=== PATIENT | female | born 1970 | race Caucasian/White ===

== ENCOUNTER → 2017-12-31 12:10 | Day surgery (SDC) | payer OTHER ==
[~2017-12-31 12:10] MED LIST: Lidocaine 1% INJ* 10 MG/ML 30 ML SDV ONE
--- NOTE | 2017-12-31 14:08 | RAD ---
INDICATION: Right chest mass COMPARISON: Chest x-ray December 30, 2017; CT chest December 30, 2017 TECHNIQUE: An AP portable view obtained at 1306 hours is submitted. FINDINGS: Bones/Soft Tissues: There are no acute bony findings. Cardiomediastinal: The cardiomediastinal silhouette is normal. Lungs: There is a right upper lobe mass measuring up to 10 cm in greatest dimension. Some of the radiodensity may be related to post obstructive atelectasis, however. The plain radiographs demonstrate no additional discrete masses although CT is suggested additional metastatic foci. There is no pneumothorax. Pleura: There is a small moderate-sized right-sided pleural effusion appearing slightly smaller. There may be a tiny left-sided pneumothorax. Other: None IMPRESSION: RIGHT UPPER LOBE MASS. NO PNEUMOTHORAX POST THORACENTESIS. THERE ARE SUBPLEURAL EFFUSION IS SMALLER
--- NOTE | 2017-12-31 15:37 | RAD ---
INDICATION: Limited RIGHT chest ultrasound for marking for thoracentesis. Comparison: December [address] and December 31 chest radiograph. Technique: Ultrasound of the posterior inferior RIGHT thorax performed with the patient sitting. REPORT AND IMPRESSION: Large nonloculated appearing pleural effusion with low-level echoes suggesting malignant pleural effusion or parapneumonic effusion. Skin over the dominant pocket of pleural fluid marked for thoracentesis.
--- NOTE | 2018-01-01 02:42 | PRO ---
THORACENTESIS REPORT: DATE OF PROCEDURE: 12/31/17 PROCEDURE PERFORMED: Ultrasound-sound guided thoracentesis on the right side. PREPROCEDURAL DIAGNOSIS: Right-sided pleural effusion. POSTPROCEDURAL DIAGNOSIS: Large right pleural effusion. ANESTHESIA: Local anesthesia with 1% lidocaine 5 cc. PROCEDURE: Informed consent was obtained from the patient prior to the procedure after all the risks and benefits of the procedure were thoroughly explained. The patient was referred for evaluation of abdominal CT chest, was found to have a large right-sided lung mass along with right pleural effusion and mediastinal and hilar adenopathy. Strict aseptic precautions were utilized. A time-out was agreed on by the attending staff prior to the procedure. The patient was sitting up and leaning forward. CareFusion 8- [place]ian thoracentesis catheter was used for the procedure. A portable ultrasound was utilized to nina the pleural space and site of entry. Area was cleaned with chlorhexidine. 1% lidocaine was then instilled intramuscularly taking precautions under manual suction. A stab incision was made with #11 scalpel blade to facilitate entry of larger catheter. CareFusion 8-[place]ian catheter then was inserted under manual suction taking precautions. The catheter was left in space and needle was removed. 1 L of dark yellow fluid was aspirated on manual suction. Catheter was removed and band aid was applied. Fluid was sent to the lab for biochemical and cytological examination. Postprocedure chest x-ray was ordered and was verified. [id number] #: [id number] MTDD
== END | disposition home or self-care (01) ==
LOC: OR 12:10
PROVIDERS: ATTEND Internal Medicine
DX: J91.0 Malignant pleural effusion (principal); Z87.891 Personal history of nicotine dependence; Z85.828 Personal history of other malignant neoplasm of skin; R06.02 Shortness of breath; R05 Cough; J98.4 Other disorders of lung; R59.0 Localized enlarged lymph nodes
CPT/HCPCS: 36415; 71045; 76604; 82945; 83615; 84157; 87070; 87076; 87205; 88112; 88305; 88341; 88342; 88360; 89051

== ENCOUNTER → 2018-01-12 12:13 | Day surgery (SDC) | payer OTHER ==
--- NOTE | 2018-01-12 13:56 | RAD ---
HISTORY: Localization for thoracentesis COMPARISONS: December 31, 2017 TECHNIQUE: Multiple transverse and longitudinal ultrasound images were obtained of the right chest for the purposes of localization for thoracentesis. FINDINGS: Spot images demonstrate a large right pleural effusion. At the site marked for thoracentesis, the distance from the skin to the effusion is approximately 2 cm. The distance from the skin to the center of the effusion is approximately 9 cm. IMPRESSION: LIMITED ULTRASOUND FOR THE PURPOSES OF LOCALIZATION FOR THORACENTESIS
--- NOTE | 2018-01-12 14:15 | RAD ---
INDICATION: Status post thoracentesis. COMPARISON: Comparison is made with a prior study from January 11, 2018. TECHNIQUE: A portable view of the chest was obtained. FINDINGS: The heart is within normal limits in size. There is a large mass which projects over the right hilar region which appears unchanged. There is a small right pleural effusion which has decreased in size. There also appears to be a trace left pleural effusion No pneumothorax is seen. IMPRESSION: INTERVAL DECREASE IN SIZE OF THE RIGHT PLEURAL EFFUSION, NO PNEUMOTHORAX IS SEEN.
--- NOTE | 2018-01-12 21:59 | PRO ---
PROCEDURE REPORT: DATE OF PROCEDURE: 01/12/18 PROCEDURE PERFORMED: Ultrasound-guided thoracentesis on the right side. PREPROCEDURAL DIAGNOSES: Recurrent right pleural effusion, recently diagnosed adenocarcinoma of lung ANESTHESIA: Local anesthesia with 1% lidocaine 5 cc. POSTPROCEDURAL DIAGNOSIS: Large right pleural effusion. PROCEDURE IN DETAIL: Informed consent was obtained from the patient prior to the procedure after all the risks and benefits including the risk of pneumothorax was thoroughly explained. Patient had thoracentesis few days ago, cytology was positive for adenocarcinoma. Patient had worsening cough and shortness of breath over the past 3 to 4 days, chest x-ray revealed recurrence of pleural effusion on the right side. Ultrasound was utilized at bedside to localize large amounts of right pleural fluid. Appropriate time-out was agreed on by attending staff prior to the procedure. CareFusion 8-Thai thoracentesis catheter was used at bed side. Patient was sitting up, leaning forwards. Strict aseptic precautions and barrier techniques were utilized. Chlorhexidine was used to disinfect the skin. 1% lidocaine was instilled subcutaneously, intradermally taking precautions. A #11 scalpel blade was utilized to make stab incision. CareFusion 8-Thai thoracentesis catheter was inserted under manual suction. Catheter was left in place and needle was removed. Dark yellow fluid about 1300 mL was removed under manual suction. Catheter was then removed and bandage was applied. Patient tolerated the procedure well. Postprocedure chest x-ray was performed and was reviewed by me. Patient was discharged home in stable condition. [id number]/CPS #: [id number] MTDD
== END | disposition home or self-care (01) ==
LOC: OR 12:13
PROVIDERS: ATTEND Internal Medicine
DX: J91.0 Malignant pleural effusion (principal); C34.90 Malignant neoplasm of unspecified part of unspecified bronchus or lung; Z87.891 Personal history of nicotine dependence; R06.02 Shortness of breath; R59.0 Localized enlarged lymph nodes; R05 Cough
CPT/HCPCS: 32554; 71045; 76604

== ENCOUNTER → 2018-01-21 | Day surgery (SDC) | payer OTHER ==
--- NOTE | 2018-01-21 13:47 | RAD ---
HISTORY: Status post paracentesis COMPARISONS: January 20, 2018 VIEWS: 1: frontal portable view of the chest at 1:17 PM FINDINGS: LINES AND TUBES: None. CARDIOMEDIASTINAL SILHOUETTE: There is stable paramediastinal mass of the right upper lung. PLEURA: There is a small residual right pleural effusion, decreased from the previous examination. There is no appreciable pneumothorax. LUNG PARENCHYMA: There is stable paramediastinal mass of the right upper lung. There is, frontal opacification of the right lower lung. ABDOMEN: The upper abdomen is clear. There is no subphrenic gas. BONES AND SOFT TISSUES: No bone or soft tissue abnormalities are noted. IMPRESSION: 1. SMALL RESIDUAL RIGHT PLEURAL EFFUSION, DECREASED FROM THE PREVIOUS EXAMINATION. NO APPRECIABLE PNEUMOTHORAX. 2. STABLE RIGHT PARAMEDIASTINAL MASS OF THE UPPER LUNG. 3. RIGHT LOWER LUNG CONSOLIDATION.
--- NOTE | 2018-01-21 20:39 | PRO ---
PROCEDURE REPORT: DATE OF PROCEDURE: 01/21/18 PROCEDURE PERFORMED: Ultrasound-guided thoracentesis on the right side. PREPROCEDURAL DIAGNOSIS: Adenocarcinoma, therapeutic. POSTPROCEDURAL DIAGNOSIS: Large right pleural effusion for therapeutic benefit. ANESTHESIA: 1% lidocaine 6 mL. INDICATION: Informed consent was obtained from the patient prior to the procedure after all the risks and benefits were thoroughly explained. The patient recently was diagnosed with adenocarcinoma of pulmonary origin after thoracentesis. The patient has been having worsening cough, difficulty lying down, and shortness of breath, and procedure was scheduled for therapeutic benefit. DESCRIPTION OF PROCEDURE: Informed consent was obtained from the patient after all the risks and benefits including the risks of pneumothorax were thoroughly explained. Appropriate time-out was agreed on by attending staff prior to the procedure. Strict aseptic precautions and all barrier techniques were utilized. A carefusion 8F thoracentesis catheter was utilized. Portable U/ S was utilized at bedside. Area was anesthetized with 1% lidocaine, instilled, intradermally, subcutaneously down into pleural space taking precautions. Stab incision was performed with #11 scalpel blade to facilitate insertion of catheter which was inserted under manual suction. Catheter was left in place and needle was removed. 1400ml of dark yelllow fluid was drained under manual suction. Patient had mild cough towards end of procedure. Procedure was terminated. Post procedure CXR was ordered and was verified, no evidence of pneumothorax noted. [id number]/[facility] #: [id number] MTDD
== END | disposition home or self-care (01) ==
LOC: IMG 10:55
PROVIDERS: ATTEND Internal Medicine
DX: J90 Pleural effusion, not elsewhere classified (principal); J98.4 Other disorders of lung; J18.1 Lobar pneumonia, unspecified organism
CPT/HCPCS: 32554; 71045; 88112; 88305

== ENCOUNTER → 2018-01-31 11:11 | Day surgery (SDC) | payer OTHER, BC ==
--- NOTE | 2018-01-31 13:41 | RAD ---
Indication: Ultrasound marking for RIGHT thoracentesis. Comparison: January 28, 2018 chest radiograph. Technique: Ultrasound of the posterior RIGHT thorax. REPORT AND IMPRESSION: Large dependent RIGHT pleural effusion visualized. Skin over the fluid marked for thoracentesis by Dr. Hutchinson.
--- NOTE | 2018-01-31 13:57 | RAD ---
Indication: Right pleural effusion. Single frontal portable view of the chest demonstrate the 13th 30 hours demonstrates right upper lobe atelectasis. Right pleural effusion is decreased. Right upper lobe mass is noted. No pneumothorax is noted. IMPRESSION: No pneumothorax after right thoracentesis.
--- NOTE | 2018-02-01 09:13 | PRO ---
THORACENTESIS REPORT: DATE OF PROCEDURE: 01/31/18 - [facility] PROCEDURE PERFORMED: Ultrasound-guided thoracentesis on the right side. PREPROCEDURAL DIAGNOSIS: Moderate to large size right pleural effusion. POSTPROCEDURAL DIAGNOSIS: Moderate right pleural effusion. ANESTHESIA: Local anesthesia with 1% lidocaine. DESCRIPTION OF PROCEDURE: Informed consent was obtained from the patient prior to the procedure after all the risks and benefits were thoroughly discussed. Appropriate time-out was agreed on by attending staff. Portable ultrasound was utilized at bedside to nina the spot. The patient has been having recurrent pleural effusion on the right side secondary to adenocarcinoma of the lung. The patient presented with cough and worsening shortness of breath. Appropriate barrier techniques were utilized prior to the procedure. Area was cleaned with chlorhexidine. Ultrasound was used to nina the spot to facilitate insertion of thoracentesis catheter. 1% lidocaine was instilled subcutaneously intradermally taking precautions. A CareFusion 8-Botswanan thoracentesis catheter was used for the procedure. A stab incision was made in the back with #11 scalpel blade to facilitate the placement of catheter. Catheter was inserted under manual suction, taking precautions. Catheter was left in space and needle was removed. 850 mL of dark yellow fluid was drained under manual suction. The patient tolerated the procedure well. The patient had a little bit of cough towards the end of the procedure. Postprocedure chest x-ray was performed and verified by me. No pneumothorax was noted. [id number]/CPS #: [id number] MTDD
== END | disposition home or self-care (01) ==
LOC: OR 11:11
PROVIDERS: ATTEND Internal Medicine
DX: C34.91 Malignant neoplasm of unspecified part of right bronchus or lung (principal); J91.0 Malignant pleural effusion; Z87.891 Personal history of nicotine dependence; R59.0 Localized enlarged lymph nodes; R06.02 Shortness of breath; R05 Cough
CPT/HCPCS: 71045; 76604

== ENCOUNTER 2019-07-01 15:06 | Emergency (ER) | payer OTHER, BC ==
[2019-07-01 15:10] VITALS: BP 136/70
[2019-07-01 15:33] LABS: ABS Lymphocytes 0.7 10^3/ul (1.0-4.8); ABS Monocytes 0.7 10^3/ul (0-0.8); ABS Neutrophils 3.4 10^3/ul (1.5-7.7); Eosinophil % 0.4 %; Hematocrit 36 % (35-47); Hemoglobin 12.9 g/dL (12.0-16.0); Lymphocyte % 13.6 %; Mean Corpuscular HGB Conc 36 g/dL (31-36); Mean Corpuscular Hemoglobin 33 pg (27-31); Mean Corpuscular Volume 91 fL (80-97); Mean Platelet Volume 7.4 fL (7.4-10.4); Platelet Count 171 10^3/uL (150-450); Red Blood Count 3.95 10^6 /uL (3.70-4.87); Red Cell Distribution Width 12 % (10-15); White Blood Count 4.9 10^3/uL (3.5-10.8)
[2019-07-01 15:53] LABS: Albumin 4.4 g/dL (3.2-5.2); Albumin/Globulin Ratio 1.6 (1-3); BUN/Creatinine Ratio 20.9 (8-20); C Reactive Protein 75.66 mg/L (<8.01); Calcium 9.7 mg/dL (8.6-10.3); EGFR African American 112.7 (>60); EGFR Non-African American 93.2 (>60); Globulin 2.8 g/dL (2-4); Potassium 3.8 mmol/L (3.5-5.0); Total Protein 7.2 g/dL (6.4-8.9)
--- NOTE | 2019-07-01 16:06 | ED ---
HPI Febrile Illness - HPI Summary HPI Summary: This patient is a 48-year-old female presenting to the ED with a low-grade temperature 2 days. She received a flu vaccine yesterday and since that time, she has felt somewhat ill with a low-grade temp of 99.8 yesterday and 100.3 today. She has not taken any Tylenol or ibuprofen. She is actively getting chemotherapy and immunosuppressive therapy. History of neoplastic bronchitis. Patient sees Dr. Welch. States feels somewhat ill, however denies any specific pain including CPK, SOB, abdominal pain or headaches. She does have a small erythematous and warm area just superior to the medial left ankle which appears to be a early cellulitis versus EM rash. Patient called Dr. Alvarado, oncology who recommended she come to the ED for further evaluation of her temperature. - History of Current Complaint Chief Complaint: EDFever Time Seen by Provider: 07/01/19 15:17 Hx Obtained From: Patient Onset/Duration: Started Hours Ago Timing: Constant Temperature: 100.1 F Initial Severity: Mild Current Severity: Mild Pain Intensity: 0 Pain Scale Used: 0-10 Numeric Aggravating Factors: Nothing Alleviating Factors: Nothing Associated Signs and Symptoms: Negative - Risk Factors Pseudomonas Risk Factors: Negative Serious Bacterial Infection Risk Factors: Negative - Allergy/Home Medications Allergies/Adverse Reactions: Allergies Allergy/AdvReac Type Severity Reaction Status Date / Time No Known Allergies Allergy Verified 07/01/19 15:30 Home Medications: Home Medications Amlodipine Besylate [Norvasc] 5 mg PO DAILY 07/01/19 [History Confirmed 07/01/19 ] Tramadol HCl 50 mg PO DAILY PRN 07/01/19 [History Confirmed 07/01/19] PMH/Surg Hx/FS Hx/Imm Hx Previously Healthy: Yes Endocrine/Hematology History: Denies: Hx Diabetes Cardiovascular History: Reports: Hx Hypertension Denies: Hx Pacemaker/ICD Respiratory History: Reports: Hx Asthma, Other Respiratory Problems/Disorders History: Denies: Hx Renal Disease Sensory History: Denies: Hx Hearing Aid Psychiatric History: Reports: Hx Panic Disorder - PT DOES HAVE PREMEDICATION, ATTEMPTED PRIOR WITH XANAX - Cancer History Cancer Type, Location and Year: LUNG Hx Chemotherapy: No Hx Radiation Therapy: No - Surgical History Surgery Procedure, Year, and Place: HYSTERECTOMY; pleurovac cath, removed - Immunization History Hx Pertussis Vaccination: No Immunizations Up to Date: Yes Infectious Disease History: No Infectious Disease History: Denies: Traveled Outside the [place] in Last 30 Days - Social History Occupation: Employed Full-time Lives: With Family Alcohol Use: None Hx Substance Use: No Substance Use Type: Reports: None Hx Tobacco Use: Yes Smoking Status (MU): Former Smoker Review of Systems Positive: Fever, Fatigue. Negative: Chills, Skin Diaphoresis Negative: Palpitations, Chest Pain Negative: Shortness Of Breath, Cough Genitourinary: Negative Positive: no symptoms reported, see HPI Negative: Arthralgia, Myalgia Positive: Other - 3cm in diameter erythematous area just superior to the medial ankle Neurological: Negative Negative: Weakness, Paresthesia All Other Systems Reviewed And Are Negative: Yes Physical Exam Triage Information Reviewed: Yes Vital Signs On Initial Exam: Initial Vitals Temp Pulse Resp BP Pulse Ox 100.1 F 94 16 136/70 98 07/01/19 15:07 07/01/19 15:07 07/01/19 15:07 07/01/19 15:07 07/01/19 15:07 Vital Signs Reviewed: Yes Appearance: Positive: Well-Appearing, Well-Nourished Skin: Positive: Skin Color Reflects Adequate Perfusion, Other - 3cm in diameter erythematous area just superior to the medial ankle Head/Face: Positive: Normal Head/Face Inspection Eyes: Positive: EOMI, Conjunctiva Clear Neck: Positive: Supple, No Lymphadenopathy Respiratory/Lung Sounds: Positive: Clear to Auscultation, Breath Sounds Present Cardiovascular: Positive: RRR, Pulses are Symmetrical in both Upper and Lower Extremities Musculoskeletal: Positive: Strength/ROM Intact Neurological: Positive: Sensory/Motor Intact, Alert, Oriented to Person Place, Time, Speech Normal Psychiatric: Positive: Affect/Mood Appropriate Procedures - Sedation Patient Received Moderate/Deep Sedation with Procedure: No Diagnostics - Vital Signs Vital Signs Temp Pulse Resp BP Pulse Ox 07/01/19 15:07 100.1 F 94 16 136/70 98 - Laboratory Lab Results: Lab Results 07/01/19 07/01/19 Range/Units 15:25 15:25 WBC 4.9 (3.5-10.8) 10^3/uL RBC 3.95 (3.70-4.87) 10^6 /uL Hgb 12.9 (12.0-16.0) g/dL Hct 36 (35-47) % MCV 91 (80-97) fL MCH 33 H (27-31) pg MCHC 36 (31-36) g/dL RDW 12 (10-15) % Plt Count 171 (150-450) 10^3/uL MPV 7.4 (7.4-10.4) fL Neut % (Auto) 70.9 % Lymph % (Auto) 13.6 % Wilkin % (Auto) 14.8 % Eos % (Auto) 0.4 % Baso % (Auto) 0.3 % Absolute Neuts (auto) 3.4 (1.5-7.7) 10^3/ul Absolute Lymphs (auto) 0.7 L (1.0-4.8) 10^3/ul Absolute Monos (auto) 0.7 (0-0.8) 10^3/ul Absolute Eos (auto) 0.0 (0-0.6) 10^3/ul Absolute Basos (auto) 0.0 (0-0.2) 10^3/ul Absolute Nucleated RBC 0.0 10^3/ul Nucleated RBC % 0.0 Sodium 131 L (135-145) mmol/L Potassium 3.8 (3.5-5.0) mmol/L Chloride 97 L (101-111) mmol/L Carbon Dioxide 26 (22-32) mmol/L Anion Gap 8 (2-11) mmol/L BUN 14 (6-24) mg/dL Creatinine 0.67 (0.51-0.95) mg/dL Est GFR ( Amer) 112.7 (>60) Est GFR (Non-Af Amer) 93.2 (>60) BUN/Creatinine Ratio 20.9 H (8-20) Glucose 114 H (70-100) mg/dL Calcium 9.7 (8.6-10.3) mg/dL Total Bilirubin 1.00 (0.2-1.0) mg/dL AST 24 (13-39) U/L ALT 19 (7-52) U/L Alkaline Phosphatase 55 (34-104) U/L C-Reactive Protein 75.66 H (<8.01) mg/L Total Protein 7.2 (6.4-8.9) g/dL Albumin 4.4 (3.2-5.2) g/dL Globulin 2.8 (2-4) g/dL Albumin/Globulin Ratio 1.6 (1-3) Result Diagrams: 07/01/19 15:25 07/01/19 15:25 Lab Statement: Any lab studies that have been ordered have been reviewed, and results considered in the medical decision making process. Course/Dx - Course Course Of Treatment: On arrival into the ED, the patient appears well. She is nondiaphoretic and nontoxic in appearing. On physical examination, lungs CTA, RRR. There is a small erythematous area measuring approximately 3 cm in diameter just superior to the left medial ankle which appears to be a very early cellulitis or EM rash. Patient denies any known tick bites or bug bites. Temperature is 100.1 on arrival. She denies any diaphoresis or chills. She denies any CP or SOB. Discussed with the patient will place on Keflex for the warm erythematous area to the left medial ankle, however if symptoms do not improve within 48 hours, she will need to return to the ED or see her primary. This does not appear to be in EM rash at this time and denies any tick bites, however this is in the differential. Discussed case with Dr. Alvarado who is OK with plan of abx and DC. - Febrile Illness Differential Diagnoses: Other: - cellulitis, EM rash, reaction to vaccine - Diagnoses Provider Diagnoses: Fever Discharge ED - Sign-Out/Discharge Documenting (check all that apply): Patient Departure - Discharge Plan Condition: Stable Disposition: HOME Patient Education Materials: Cellulitis (ED) Referrals: Leanne Pendleton MD [Primary Care Provider] - Additional Instructions: Please continue your follow ups with oncology If your symptoms worsen, please return to the ED Drink plenty of fluids Tylenol for any high temps at home Rest Keflex three times daily x 5 days - Billing Disposition and Condition Condition: STABLE Disposition: Home
== END 2019-07-01 16:29 | disposition home or self-care (01) ==
LOC: ED 15:06
DX: R50.9 Fever, unspecified (principal); I10 Essential (primary) hypertension; J45.909 Unspecified asthma, uncomplicated; F41.0 Panic disorder [episodic paroxysmal anxiety]; Z90.710 Acquired absence of both cervix and uterus; Z87.891 Personal history of nicotine dependence; Z79.899 Other long term (current) drug therapy
CPT/HCPCS: 36415; 80053; 85025; 86140; 99282